=== PATIENT | male | born 1970 | race Caucasian/White ===

== ENCOUNTER 2017-04-27 23:16 | Emergency (ER) | payer SELFPAY ==
--- NOTE | 2017-04-27 23:28 | ER Document Report ---
ED General - General Chief Complaint: Overdose Stated Complaint: POSSIBLE OVERDOSE Time Seen by Provider: 04/27/17 23:21 Notes: Patient is a 46-year-old male presents with complaint of feeling very depressed and suicidal. He says that he has nothing left to live for. He will not go into detail as to why he feels this way. Tonight he took 31 mg Klonopin tablets as well as 3 Cogentin tablets. He also took 2 gabapentin's earlier today. He took the Klonopin and Cogentin around 10 PM. He denies any nausea vomiting. No abdominal pain. 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 He has no other complaints at this time. TRAVEL OUTSIDE OF THE [place] IN LAST 30 DAYS: No - Related Data Allergies/Adverse Reactions: acetaminophen [From Tylenol] Allergy (Verified 01/26/16 19:44) Past Medical History - Social History Smoking Status: Unknown if Ever Smoked Frequency of alcohol use: unknown Drug Abuse: Prescription drugs Family History: CAD - Patient states his mother had a coronary artery bypass graft in her 40s, his father of cancer in his late 60s Renal/ Medical History: Reports: Hx Kidney Stones Past Surgical History: Reports: Hx Appendectomy - Immunizations Hx Diphtheria, Pertussis, Tetanus Vaccination: Yes Review of Systems - Review of Systems Notes: My Normal Review Basic REVIEW OF SYSTEMS: CONSTITUTIONAL : Denies fever, chills, or sweats. Denies recent illness. EENT: Denies eye, ear, throat, or mouth pain or symptoms. Denies nasal or sinus congestion. CARDIOVASCULAR: Denies chest pain. RESPIRATORY: Denies cough, cold, or chest congestion. Denies shortness of breath, difficulty breathing, or wheezing. GASTROINTESTINAL: Denies abdominal pain. Denies nausea, vomiting, or diarrhea. Denies constipation. Last BM: MUSCULOSKELETAL: Denies neck or back pain or joint pain or swelling. SKIN: Denies rash or skin lesions. NEUROLOGICAL: Denies altered mental status or loss of consciousness. Denies headache. Denies weakness or paralysis or loss of use of either side. Denies problems with gait or speech. Denies sensory or motor loss. PSYCHIATRIC: Suicidal ideations. ALL OTHER SYSTEMS REVIEWED AND NEGATIVE. Physical Exam - Vital signs Vitals: Temp Pulse Resp BP Pulse Ox 97.6 F 74 10 L 120/83 97 04/27/17 23:45 04/27/17 23:45 04/27/17 23:45 04/27/17 23:45 04/27/17 23:45 - Notes Notes: General Appearance: Well nourished, slightly somnolent, cooperative, no acute distress, no obvious discomfort. Vitals: reviewed, See vital signs table. Head: no swelling or tenderness to the head Eyes: PERRL, EOMI, Conjuctiva clear Mouth: No decreasd moisture Lungs: No wheezing, No rales, No rhonci, No accessory muscle use, good air exchange bilaterally. Heart: Normal rate, Regular rythm, No murmur, no rub Abdomen: Normal BS, soft, No rigidity, No abdominal tenderness, No guarding, no rebound, no abdominal masses, no organomegaly Extremities: strength 5/5 in all extremities, good pulses in all extremities, no swelling or tenderness in the extremities, no edema. Skin: warm, dry, appropriate color, no rash Neuro: speech clear, oriented x 3, normal affect, responds appropriately to questions. Nerves II through XII are intact. Patient moves all extremities on his own without difficulty. Gait not tested. Course - Re-evaluation Re-evalutation: 04/28/17 03:01 Patient says he wants to leave. Informed him he cannot leave because he is on involuntary commitment paperwork. He is requesting I give him Vicodin for his back. He says he takes Vicodin at home. I asked him who prescribes his Vicodin. He hesitated and then said his primary care doctor. He says his doctors in [place]. His family stopped by early and told the nurse that he was kicked out of the methadone clinic while back. I did look him up in the prescription database. Patient has not received any narcotic prescriptions and last 3 months. I informed the patient that some possible that he was recent prescribed Vicodin based on the prescription database. Patient says that he is unsure why it is not showing up. I informed him that I would give him Motrin. Patient refuses Motrin. Patient says he wants pain for his chronic back pain and foot pain. Patient is awake and alert and no longer has any signs of somnolence. He is medically stable for psychiatric evaluation and placement. Dictation of this chart was performed using voice recognition software; therefore, there may be some unintended grammatical errors. - Vital Signs Vital signs: Temp Pulse Resp BP Pulse Ox 97.6 F 74 10 L 120/83 97 04/27/17 23:45 04/27/17 23:45 04/27/17 23:45 04/27/17 23:45 04/27/17 23:45 - Laboratory Result Diagrams: 04/27/17 23:25 04/27/17 23:25 Laboratory results interpreted by me: 04/27/17 23:25 Chloride 108 H AST 15 L Salicylates < 1.0 L Acetaminophen < 10 L - EKG Interpretation by Me Additional EKG results interpreted by me: 04/27/17 23:28 EKG is reviewed and interpreted by me. EKG shows normal sinus rhythm with rate of [address] segment elevation or depression. No ischemic T-wave inversions. UT interval, QRS duration, QTc intervals are within normal range. Discharge - Discharge Clinical Impression: Suicidal intent Overdose Qualifiers: Encounter type: initial encounter Injury intent: intentional self-harm Qualified Code(s): T50.902A - Poisoning by unspecified drugs, medicaments and biological substances, intentional self-harm, initial encounter Condition: Stable Disposition: PSYCH HOSP/UNIT
[2017-04-27 23:38] LABS: ABSOLUTE BASOPHILS # (AUTO) 0.1 10^3/uL (0.0-0.2); ABSOLUTE EOSINOPHILS # (AUTO) 0.2 10^3/uL (0.0-0.6); ABSOLUTE LYMPHOCYTES (AUTO) 2.6 10^3/uL (0.5-4.7); ABSOLUTE MONOCYTES (AUTO) 0.6 10^3/uL (0.1-1.4); ABSOLUTE NEUT (AUTO) 4.9 10^3/uL (1.7-8.2); BASOPHILS % (AUTO) 0.9 % (0-2); EOSINOPHILS % (AUTO) 2.7 % (0-6); HEMATOCRIT 46.4 % (37.9-51.0); HEMOGLOBIN 16.3 g/dL (13.5-17.0); HGB HCT DIFFERENCE 2.5; LYMPHOCYTES % (AUTO) 30.7 % (13-45); MEAN CORPUSCULAR HEMOGLOBIN 30.8 pg (27.0-33.4); MEAN CORPUSCULAR HGB CONC 35.1 g/dL (32.0-36.0); MEAN CORPUSCULAR VOLUME 88 fl (80-97); MONOCYTES % (AUTO) 7.3 % (3-13); RED CELL DISTRIBUTION WIDTH 13.3 % (11.5-14.0); SEGMENTED NEUTROPHILS % (AUTO) 58.4 % (42-78); WHITE BLOOD COUNT 8.4 10^3/uL (4.0-10.5)
[2017-04-27 23:53] LABS: ALANINE AMINOTRANSFERASE 31 U/L (21-72); ALKALINE PHOSPHATASE 80 U/L (38-126); ANION GAP 10 (5-19); ASPARTATE AMINO TRANSFERASE 15 U/L (17-59); BILIRUBIN,DIRECT 0.4 mg/dL (0.0-0.4); BILIRUBIN,TOTAL 0.4 mg/dL (0.2-1.3); BLOOD UREA NITROGEN 8 mg/dL (7-20); CALCIUM 9.5 mg/dL (8.4-10.2); CARBON DIOXIDE 26 mmol/L (22-30); CHLORIDE 108 mmol/L (98-107); CREATININE RESULT 0.75 mg/dL (0.52-1.25); GLUCOSE 96 mg/dL (75-110); POTASSIUM 4.2 mmol/L (3.6-5.0); SODIUM 143.7 mmol/L (137-145); TOTAL PROTEIN 6.5 g/dL (6.3-8.2)
[2017-04-27 23:55] LABS: ALCOHOL < 10 mg/dL (NONE DETECTED)
[2017-04-28 00:53] LABS: APPEARANCE,URINE CLEAR; BILIRUBIN,URINE NEGATIVE (NEGATIVE); GLUCOSE, URINE NEGATIVE (NEGATIVE); KETONES,URINE NEGATIVE (NEGATIVE); LEUKOCYTE ESTERASE,URINE NEGATIVE (NEGATIVE); NITRITE,URINE NEGATIVE (NEGATIVE); PROTEIN,URINE NEGATIVE (NEGATIVE); URINE SPECIFIC GRAVITY 1.003; UROBILINOGEN,URINE NEGATIVE mg/dL (<2.0)
[2017-04-28 01:39] LABS: URINE BARBITURATES SCREEN NEGATIVE; URINE METHADONE SCREEN NEGATIVE; URINE OPIATES LOW UNCONFIRMED POSITIVE; URINE PHENCYCLIDINE SCREEN NEGATIVE
--- NOTE | 2017-04-28 08:10 | EKG REPORT ---
SEVERITY:- NORMAL ECG - SINUS RHYTHM : Confirmed by: Ranulfo Hager MD 28-Apr-2017 08:09:32
[2017-04-28] MEDS ORDERED: OXYCODONE HCL IR 5 MG TABLET PO ONE (10:29)
--- NOTE | 2017-04-28 10:32 | ER Document Report ---
Doctor's Note Notes: 04/28/17 10:30 This is a 46-year-old man with a history of depression who presents to the emergency room depressed in the setting of an intentional overdose with Klonopin. Patient was observed overnight. His labs and vital signs have been stable. He does have a history of chronic back pain. I have reviewed the previous notes where there is question as to whether he is really on these medicines. Given that he has been in the ER for several hours and on the stretcher is and given his complaints of sciatica, we will treat him symptomatically. We are currently awaiting psychiatric disposition 04/28/17 10:31 04/28/17 13:56 The patient has been evaluated and cleared by psychiatry. The plan will be for him to follow-up immediately after discharge at [facility].
--- NOTE | 2017-04-28 13:45 | ER Document Report ---
ED Psych Disorder / Suicide - General Chief Complaint: Overdose Stated Complaint: POSSIBLE OVERDOSE Time Seen by Provider: 04/27/17 23:21 TRAVEL OUTSIDE OF THE [place] IN LAST 30 DAYS: No - HPI Notes: Patient is a 46-year-old male presents with complaint of feeling very depressed and suicidal. He says that he has nothing left to live for. He will not go into detail as to why he feels this way. Tonight he took 31 mg of Klonopin tablets as well as 3 Cogentin tablets. He also took 2 gabapentin's earlier today. He took the Klonopin and Cogentin around 10 PM. He denies any nausea vomiting. No abdominal pain. 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 He has no other complaints at this time. First attempt to evaluate patient was unsuccessful (patient is still AMS); reevaluation will occur. Patient disclosed he needs to go home now because he is very irritated. Patient states that he was upset and just took "a handful of pills of my friends so I can get some sleep." Patient stated that apparently after he fell asleep all of his friends became concerned. Patient adamantly denies he attempted suicide. Patient states that he needs to go home to take care of his dogs so they do not "starve to ." Patient continued to state that there is not an issue and he would like to leave now. Patient is alert and orientated to person place time and circumstance. Mood is slightly irritable with congruent affect. She adamantly denies suicidal and homicidal ideation. Patient denies auditory visual hallucinations. Delusions are absent and behaviors congruent with intact reality based presentation i.e. organized linear rational thinking. Patient eye contact was well-maintained. Conversational speech was within normal rate tone and prosody. Intellectual abilities appear to be within the average range. Attention and concentration are good. Insight, judgment, impulse control are fair. V 62.9 (6 5.9) unspecified problem related to unspecified psychosocial circumstance Impression\\plan: Patient is recommended for rescind of IVC and is considered psychiatrically clear for discharge. Patient does not meet IVC criteria per [place] GS 122C. Patient adamantly denies suicidal and homicidal ideation. Patient states he was just trying to get some sleep however does admit that he took medication that did not belong to him. Delusions are absent behaviors congruent with intact reality based presentation i.e. organized, linear, rational thinking. Patient is discussing caring for his animals and other things that he needs to do showing planning for future. Patient is demonstrating some cluster B personality traits. Patient is recommended to receive a substance abuse assessment and possible treatment. Dr. Whiteside was consulted and the care management of this patient; attending physician is agreement with recommendations and disposition. - Related Data Allergies/Adverse Reactions: acetaminophen [From Tylenol] Allergy (Verified 01/26/16 19:44) Home Medications: Current Home Medications No Home Medications 04/28/17 [History] Past Medical History - Social History Smoking Status: Unknown if Ever Smoked Chew tobacco use (# tins/day): No Frequency of alcohol use: unknown Drug Abuse: Prescription drugs Family History: CAD - Patient states his mother had a coronary artery bypass graft in her 40s, his father of cancer in his late 60s Renal/ Medical History: Reports: Hx Kidney Stones Past Surgical History: Reports: Hx Appendectomy - Immunizations Hx Diphtheria, Pertussis, Tetanus Vaccination: Yes Physical Exam - Vital signs Vitals: Resp Pulse Ox 8 L 98 04/27/17 23:21 04/27/17 23:21 Course - Vital Signs Vital signs: Temp Pulse Resp BP Pulse Ox 97.8 F 80 14 121/79 95 04/28/17 09:45 04/28/17 09:45 04/28/17 09:45 04/28/17 09:45 04/28/17 09:45 - Laboratory Result Diagrams: 04/27/17 23:25 04/27/17 23:25 Laboratory results interpreted by me: 04/27/17 23:25 Chloride 108 H AST 15 L Salicylates < 1.0 L Acetaminophen < 10 L Discharge - Discharge Clinical Impression: Overdose Qualifiers: Encounter type: initial encounter Injury intent: intentional self-harm Qualified Code(s): T50.902A - Poisoning by unspecified drugs, medicaments and biological substances, intentional self-harm, initial encounter Clinical Impression: (Ruled Out): Suicidal intent Condition: Stable Disposition: HOME, SELF-CARE Additional Instructions: He will recommended to receive outpatient substance abuse assessment at [facility]. Please contact them within 3-5 days for an appointment. It is also recommended you take medications as prescribed and only medications that are prescribed to you. AT ANY TIME, IF YOUR SYMPTOMS CHANGE SIGNIFICANTLY OR WORSEN OR YOU DEVELOP NEW SYMPTOMS, RETURN TO THE EMERGENCY DEPARTMENT IMMEDIATELY FOR RE-EVALUATION. OUR GOAL IS TO PROVIDE EXCELLENT MEDICAL CARE! WE HOPE THAT WE HAVE MET YOUR EXPECTATIONS DURING YOUR EMERGENCY DEPARTMENT VISIT AND THAT YOU FEEL YOU HAVE RECEIVED EXCELLENT CARE! Referrals: [facility] [Outside] - Follow up in 3-5 days
[2017-04-28 14:21] VITALS: BP 125/64
== END 2017-04-28 14:21 | disposition home or self-care (01) ==
LOC: ER 23:16
DX: T42.4X2A Poisoning by benzodiazepines, intentional self-harm, initial encounter (principal); F32.9 Major depressive disorder, single episode, unspecified
CPT/HCPCS: 36415; 80053; 80307; 81001; 85025; 93005; 93010; 99285

== ENCOUNTER 2017-10-15 14:26 | Emergency (ER) | payer SELFPAY ==
[2017-10-15] MEDS ORDERED: OXYCODONE HCL IR 5 MG TABLET PO ONE (14:41)
[2017-10-15] MEDS ORDERED: LIDOCAINE 1% INJ-PF (10 MG/ML) 30 ML SDV INJ ONE (14:41)
[2017-10-15] MEDS ORDERED: DIPH/PERTUSS(ACELL)/TETANUS VAC/PF 0.5 ML SYR (>=10YO) IM ONE (14:41)
--- NOTE | 2017-10-15 14:47 | ER Document Report ---
ED Animal Bite - General Chief Complaint: Dog Bite Stated Complaint: DOG BITE Time Seen by Provider: 10/15/17 14:34 Mode of Arrival: Ambulatory Information source: Patient TRAVEL OUTSIDE OF THE [place] IN LAST 30 DAYS: No - HPI Location of injury: Other - rt forearm Severity of injury: Bitten Onset: Just prior to arrival Quality of pain: Throbbing Pain Level: 4 Severity: Moderate Context of attack: Animals fighting Summary of what happened: his two dogs started fighting and he tried to break it up and got bit Type of animal: Dog Appearance of animal: Appeared well Breed and color: pit mix Animal's immunizations: UTD Notes: Patient is a 47-year-old male with no significant past medical history presents to the ED with a dog bite to the right forearm as noted above. Patient states that he can still move his hand, but does have pain in his forearm in doing so. Patient states that his dog is otherwise been healthy with immunizations up-to -date. Denies any other recent illness. No other concerns or complaints at this time. Unknown last tetanus. Denies any headache, fever, head injury, neck pain, URI, sore throat, chest pain, palpitations, syncope, cough, shortness of breath, wheeze, dyspnea, abdominal pain, nausea/vomiting/diarrhea, urinary retention, dysuria, hematuria, numbness/tingling, muscle paralysis/ weakness, or rash. - Related Data Allergies/Adverse Reactions: acetaminophen [From Tylenol] Allergy (Verified 10/15/17 14:31) Past Medical History - Social History Smoking Status: Current Every Day Smoker Family History: CAD - Patient states his mother had a coronary artery bypass graft in her 40s, his father of cancer in his late 60s Renal/ Medical History: Reports: Hx Kidney Stones Past Surgical History: Reports: Hx Appendectomy - Immunizations Hx Diphtheria, Pertussis, Tetanus Vaccination: Yes Review of Systems - Review of Systems -: Yes All other systems reviewed and negative Physical Exam - Vital signs Vitals: Temp Pulse Resp BP Pulse Ox 98.5 F 70 16 136/96 H 97 10/15/17 14:31 10/15/17 14:31 10/15/17 14:31 10/15/17 14:31 10/15/17 14:31 - Notes Notes: PHYSICAL EXAMINATION: GENERAL: Well-appearing, well-nourished and in no acute distress. A&Ox4. LUNGS: Breath sounds clear to auscultation bilaterally and equal. No wheezes rales or rhonchi. HEART: Regular rate and rhythm without murmurs, rubs, gallops. Musculoskeletal: Rt arm: FROM to passive/active. Strength 4+/5 due to pain. N/ v intact distal. Extremities: No cyanosis, clubbing, or edema b/l. Peripheral pulses 2+. Capillary refill less than 3 seconds. NEUROLOGICAL: Cranial nerves grossly intact. Normal speech, normal gait. Normal sensory, motor exams PSYCH: Normal mood, normal affect. SKIN: There is a [id number] laceration/puncture to the rt posterior forearm, [id number] lac/puncture to the rt posteromedial forearm, and a [id number] lac/ puncture to the rt anterior forearm. Course - Re-evaluation Re-evalutation: 10/15/17 15:45 Patient is an afebrile, well-hydrated, 47-year-old male who presents to the ED with a dog bite/laceration to his right forearm 3. Vitals are acceptable. PE is otherwise unremarkable for any neurovascular compromise, obvious tendon/ ligament rupture, obvious fracture/dislocation, retained foreign body, compartment syndrome. XR unremarkable for any acute pathology. Wound was thoroughly irrigated and cleansed. Wound edges were loosely approximated utilizing 1 simple interrupted horizontal suture for each. 3 total sutures. Wound dressing was placed and wound instructions reviewed. I will be sending him home with a prescription for Augmentin. Tdap was updated today. Conservative measures otherwise for symptoms. Recheck with your PCM on Tuesday. Return to the ED with any worsening/concerning symptoms otherwise as reviewed discharge. Patient is in agreement. - Vital Signs Vital signs: Temp Pulse Resp BP Pulse Ox 98.5 F 70 16 136/96 H 97 10/15/17 14:31 10/15/17 14:31 10/15/17 14:31 10/15/17 14:31 10/15/17 14:31 Procedures - Laceration/Wound Repair Right Arm Time completed: 15:40 Wound length (cm): 2 Wound's Depth, Shape: Superficial, Irregular Laceration pre-procedure: Sterile PPE donned, Sterile drapes applied, Other - chlorhexadine Anesthetic type: 1% Lidocaine Volume Anesthetic (mLs): 6 Wound explored: Clean, No foreign body removed Irrigated w/ Saline (mLs): 60 Wound Debrided: Minimal Wound Repaired With: Sutures Suture Size/Type: 4:0, Nylon Number of Sutures: 1 - loose closure, horizontal mattress Post-procedure wound care: Sterile dressing applied Post-procedure NV exam normal: Yes Complications: No Notes: 10/15/17 15:40 The same procedure was utilized for the other two laceration repairs to the forearms. The system will not allow for "same name" procedure to be added. Discharge - Discharge Clinical Impression: Dog bite of arm Qualifiers: Encounter type: initial encounter Laterality: right Qualified Code(s): S41.151A - Open bite of right upper arm, initial encounter Condition: Stable Disposition: HOME, SELF-CARE Instructions: Antibiotic Ointment Protection ([facility]), Laceration Care ([facility]), Soap Cleansing ([facility]), Tetanus Immunization Given ([facility]) Additional Instructions: Do not shower or bathe for 24 hours. After 24 hours you may shower but no submersion of the wound under water. Keep the original dressing on the wound for 24 hours unless the drainage soaks through. Change the dressing daily thereafter and keep the knots of the suture material clean from any dried discharge. You may leave the wound open to the air once there is no more discharge. Return to the ED and/or your PCM in 2-3 days for a recheck. Monitor for any signs of worsening pain or redness, purulent drainage, streaks, and/or fever. Return to the ED if noticing any of the above symptoms or as needed. Take medications as directed. Your sutures will need to be removed in 10 days. Keep the skin clean Wash with soap and water Wet-dry dressings Ibuprofen if needed Triple antibiotic ointment daily Take medication as directed Monitor for any worsening symptoms Recheck with your PCM in 3-5 days Orthopedics if needed Return to the ED with any worsening symptoms and/or development of fever, headache, chest pain, palpitations, syncope, shortness of breath, trouble breathing, abdominal pain, n/v/d, abscess, purulent discharge, red streaks, worsening swelling, or other worsening symptoms that are concerning to you. Prescriptions: Amox Tr/Potassium Clavulanate [Augmentin 875-125 Tablet] 1 tab PO BID 10 Days # 20 tablet Morphine Sulfate [Morphine Ir 15 Mg Tablet] 15 mg PO TID #15 tablet Forms: Elevated Blood Pressure, Smoking Cessation Education Referrals: [facility] [Provider Group] - Follow up as needed
--- NOTE | 2017-10-15 15:31 | RADIOLOGY REPORT (SQ) ---
EXAM DESCRIPTION: FOREARM RIGHT COMPLETED DATE/TIME: 10/15/2017 3:17 pm REASON FOR STUDY: dog bite right forearm COMPARISON: None. NUMBER OF VIEWS: Two views. TECHNIQUE: Two radiographic images acquired of the right forearm, including elbow and wrist in at le ast one projection. LIMITATIONS: None. FINDINGS: MINERALIZATION: Normal. BONES: No acute fracture. No worrisome bone lesions. SOFT TISSUES: Soft tissue irregularity of the antro lateral mid forearm without retained radiopaque f oreign body. OTHER: No other significant finding. IMPRESSION: Soft tissue injury without retained radiopaque foreign body or underlying osseous injury . TECHNICAL DOCUMENTATION: JOB ID: [id number] [employer]- All Rights Reserved Reading location - IP/workstation name: [email or web address]
[2017-10-15 16:08] VITALS: BP 139/84
== END 2017-10-15 16:08 | disposition home or self-care (01) ==
LOC: ER 14:26
DX: S51.851A Open bite of right forearm, initial encounter (principal); W54.0XXA Bitten by dog, initial encounter; Y93.K9 Activity, other involving animal care; F17.200 Nicotine dependence, unspecified, uncomplicated; Z88.6 Allergy status to analgesic agent; Z23 Encounter for immunization
CPT/HCPCS: 99284; 90471; 73090; 90715; 12004; J3490

== ENCOUNTER 2017-11-11 13:25 | Emergency (ER) | payer SELFPAY ==
[2017-11-11] MEDS ORDERED: AMOXICILLIN TR/POT CLAVULANATE 500-125 MG TAB PO ONE (14:20)
[2017-11-11] MEDS ORDERED: LIDOCAINE 1% INJ-PF (10 MG/ML) 30 ML SDV INJ ONE (14:20)
[2017-11-11] MEDS ORDERED: OXYCODONE HCL IR 5 MG TABLET PO ONE (14:20)
[2017-11-11] MEDS ORDERED: AMOXICILLIN TRIHYD 250 MG CAPSULE PO ONE (14:21)
--- NOTE | 2017-11-11 14:28 | ER Document Report ---
HPI - HPI Patient complains to provider of: dog bite Onset: Just prior to arrival Onset/Duration: Sudden Quality of pain: Sharp Pain Level: 4 Context: Patient states that he attempted to rescue a cat from a dog and the dog bit his left forearm just prior to arrival. Patient was here 1 month ago for dog bite his tetanus was updated at that visit. Patient with puncture wound and laceration to left forearm. Associated Symptoms: Other - dog bite Exacerbated by: Movement Relieved by: Denies Similar symptoms previously: Yes Recently seen / treated by doctor: Yes - ROS ROS below otherwise negative: Yes Systems Reviewed and Negative: Yes All other systems reviewed and negative - MUSCULOSKELETAL Musculoskeletal: REPORTS: Extremity pain - left arm - DERM Skin Problems: Laceration Past Medical History - General Information source: Patient - Social History Smoking Status: Current Every Day Smoker Chew tobacco use (# tins/day): No Frequency of alcohol use: None Drug Abuse: None Occupation: apprentice painter hand Family History: CAD - Patient states his mother had a coronary artery bypass graft in her 40s, his father of cancer in his late 60s Patient has suicidal ideation: No Patient has homicidal ideation: No Renal/ Medical History: Reports: Hx Kidney Stones. Denies: Hx Peritoneal Dialysis Past Surgical History: Reports: Hx Appendectomy - Immunizations Hx Diphtheria, Pertussis, Tetanus Vaccination: Yes Vertical Provider Document - CONSTITUTIONAL Agree With Documented VS: Yes Exam Limitations: No Limitations General Appearance: WD/WN, No Apparent Distress - INFECTION CONTROL TRAVEL OUTSIDE OF THE [place] IN LAST 30 DAYS: No - HEENT HEENT: Atraumatic, Normocephalic - NECK Neck: Normal Inspection - RESPIRATORY Respiratory: No Respiratory Distress - CARDIOVASCULAR Pulses: Normal: Radial - BACK Back: Normal Inspection - MUSCULOSKELETAL/EXTREMETIES Musculoskeletal/Extremeties: MAEW, Tender - left forearm - NEURO Level of Consciousness: Awake, Alert, Appropriate Motor/Sensory: No Motor Deficit - DERM Integumentary: Warm, Dry, Laceration - left forearm lac to volar aspect, pw to dorsal aspect of left forearm Course - Re-evaluation Re-evalutation: 11/11/17 15:20 Patient's wound irrigated with Betadine and saline solution, no foreign body noted, wound edges loosely approximated to allow healing by secondary intention. Pt given good return precautions as well as instructions for care of wound. Patient encouraged to return in 48 hours for a wound recheck. Patient advised that he will need to return for rabies vaccination series if animal control is unable to locate the animal in the next 5 days. Patient verbalized understanding and agrees with plan of care. - Vital Signs Vital signs: Temp Pulse Resp BP Pulse Ox 98.4 F 82 16 153/101 H 95 11/11/17 13:29 11/11/17 13:29 11/11/17 13:29 11/11/17 13:29 11/11/17 13:29 - Diagnostic Test Radiology reviewed: Pending, Image reviewed Procedures - Laceration/Wound Repair Left Arm Wound length (cm): 3 Wound's Depth, Shape: Irregular Laceration pre-procedure: Betadine prep applied Anesthetic type: 1% Lidocaine Volume Anesthetic (mLs): 3 Wound explored: Clean, No foreign body removed Irrigated w/ Saline (mLs): 1,000 Wound Repaired With: Sutures Suture Size/Type: 4:0, Nylon Number of Sutures: 2 Post-procedure wound care: Sterile dressing applied Post-procedure NV exam normal: Yes Complications: No Notes: 11/11/17 15:20 wound loosely approximated to allow healing by secondary intention Adult Front & Back picture: 1 - 3 cm lac Left Dorsal Arm Wound length (cm): 1.5 Wound's Depth, Shape: Irregular Laceration pre-procedure: Betadine prep applied Anesthetic type: 1% Lidocaine Wound explored: Clean Wound Debrided: Minimal Wound Repaired With: Sutures Suture Size/Type: 4:0, Nylon Number of Sutures: 1 Post-procedure wound care: Sterile dressing applied Post-procedure NV exam normal: Yes Complications: No Notes: 11/11/17 15:20 wound loosely approximated Discharge - Discharge Clinical Impression: Dog bite Qualifiers: Encounter type: initial encounter Qualified Code(s): W54.0XXA - Bitten by dog, initial encounter Arm laceration Qualifiers: Encounter type: initial encounter Laterality: left Qualified Code(s): S41.112A - Laceration without foreign body of left upper arm, initial encounter Condition: Stable Disposition: HOME, SELF-CARE Instructions: Animal Bites ([facility]), Antibiotic Ointment Protection ([facility]), Laceration Care ([facility]), Prophylactic Antibiotic ([facility]), Soap Cleansing ([facility]) Additional Instructions: Return immediately for any new or worsening symptoms Followup with your primary care provider, call tomorrow to make a followup appointment Return in 2 days for a wound recheck If animal control is unable to locate the dog within the next 5 days return for rabies vaccination series Prescriptions: Amox Tr/Potassium Clavulanate [Augmentin 875-125 Tablet] 1 tab PO BID 7 Days tablet Oxycodone HCl [Oxy-Ir 5 mg Tablet] 5 mg PO Q8 PRN #12 tab PRN Reason: Forms: Return to Work Referrals: [facility] [NO LOCAL MD] - Follow up as needed
--- NOTE | 2017-11-11 15:16 | RADIOLOGY REPORT (SQ) ---
EXAM DESCRIPTION: FOREARM LEFT COMPLETED DATE/TIME: 11/11/2017 3:01 pm REASON FOR STUDY: dog bite COMPARISON: None. NUMBER OF VIEWS: Two views. TECHNIQUE: Two radiographic images acquired of the left forearm, including elbow and wrist in at [address] one projection. LIMITATIONS: None. FINDINGS: MINERALIZATION: Normal. BONES: No acute fracture. No worrisome bone lesions. SOFT TISSUES: No obvious swelling or foreign body. Laceration. OTHER: No other significant finding. IMPRESSION: No acute fracture. No foreign body. TECHNICAL DOCUMENTATION: JOB ID: [id number] [employer]- All Rights Reserved Reading location - IP/workstation name: [email or web address]
[2017-11-11 15:49] VITALS: BP 131/87
== END 2017-11-11 15:49 | disposition home or self-care (01) ==
LOC: ER 13:25
PROC: 0HQEXZZ Repair Left Lower Arm Skin, External Approach (ICD-10-PCS; principal; 2017-11-11)
DX: S51.852A Open bite of left forearm, initial encounter (principal); W54.0XXA Bitten by dog, initial encounter; F17.200 Nicotine dependence, unspecified, uncomplicated; Z87.442 Personal history of urinary calculi
CPT/HCPCS: 99283; 73090; 12002; J3490 ×2

== ENCOUNTER 2019-04-12 09:40 | Emergency (ER) | payer SELFPAY ==
--- NOTE | 2019-04-12 11:28 | ER Document Report ---
ED Hand/Wrist Injury - General Chief Complaint: Puncture Wound Stated Complaint: RIGHT HAND INJURY Time Seen by Provider: 04/12/19 11:17 Primary Care Provider: JEFFERSON HUBER MD [ACTIVE PROVISIONAL STAFF] - Follow up as needed Notes: 48 year old right handed male injured right hand this am. Sharp pain. Puncture wound to right hand. Laceration to webbing right thumb. No other injuries. Rt handed. TRAVEL OUTSIDE OF THE [place] IN LAST 30 DAYS: No - HPI Patient complains to provider of: hand injury Onset: This morning Where: Home Timing: Constant Quality of pain: Achy, Burning Severity: Moderate - Related Data Allergies/Adverse Reactions: acetaminophen [From Tylenol] Allergy (Verified 04/12/19 10:31) Past Medical History - Social History Smoking Status: Current Every Day Smoker Chew tobacco use (# tins/day): No Frequency of alcohol use: None Drug Abuse: Marijuana Family History: CAD - Patient states his mother had a coronary artery bypass graft in her 40s, his father of cancer in his late 60s Patient has suicidal ideation: No Patient has homicidal ideation: No Renal/ Medical History: Reports: Hx Kidney Stones. Denies: Hx Peritoneal Dialysis Past Surgical History: Reports: Hx Appendectomy - Immunizations Hx Diphtheria, Pertussis, Tetanus Vaccination: Yes Review of Systems - Review of Systems Constitutional: No symptoms reported EENT: No symptoms reported Cardiovascular: No symptoms reported Respiratory: No symptoms reported Gastrointestinal: No symptoms reported Genitourinary: No symptoms reported Male Genitourinary: No symptoms reported Musculoskeletal: See HPI, Other - right hand pain. Skin: No symptoms reported Hematologic/Lymphatic: No symptoms reported Neurological/Psychological: No symptoms reported Physical Exam - Vital signs Vitals: Temp Pulse Resp BP Pulse Ox 98.0 F 63 16 147/101 H 98 04/12/19 09:44 04/12/19 09:44 04/12/19 09:44 04/12/19 09:44 04/12/19 09:44 Interpretation: Normal - General General appearance: Appears well, Alert - HEENT Head: Normocephalic, Atraumatic Eyes: Normal Pupils: PERRL - Respiratory Respiratory status: No respiratory distress Chest status: Nontender Breath sounds: Normal Chest palpation: Normal - Cardiovascular Rhythm: Regular Heart sounds: Normal auscultation Murmur: No - Abdominal Inspection: Normal Distension: No distension Bowel sounds: Normal Tenderness: Nontender Organomegaly: No organomegaly - Back Back: Normal, Nontender - Extremities General upper extremity: Normal inspection, Nontender, Normal color, Normal ROM, Normal temperature General lower extremity: Normal inspection, Nontender, Normal color, Normal ROM, Normal temperature, Normal weight bearing. No: Iliana's sign Hand: Tender, Other - right hand lac 1.5 cm no bleeding - Neurological Neuro grossly intact: Yes Cognition: Normal Orientation: AAOx4 [place] Coma Scale Eye Opening: Spontaneous [place] Coma Scale Verbal: Oriented [place] Coma Scale Motor: Obeys Commands [place] Coma Scale Total: 15 Speech: Normal Motor strength normal: LUE, RUE, LLE, RLE Sensory: Normal - Psychological Associated symptoms: Normal affect, Normal mood - Skin Skin Temperature: Warm Skin Moisture: Dry Skin Color: Normal Course - Vital Signs Vital signs: Temp Pulse Resp BP Pulse Ox 98.0 F 63 16 147/101 H 98 04/12/19 09:44 04/12/19 09:44 04/12/19 09:44 04/12/19 09:44 04/12/19 09:44 Procedures - Laceration/Wound Repair Right Hand Thumb Time completed: 12:30 Wound length (cm): 1.5 Wound's Depth, Shape: Superficial, Linear, Other - puncture Anesthetic type: 1% Lidocaine Volume Anesthetic (mLs): 6 Wound explored: Contaminated Irrigated w/ Saline (mLs): 20 Wound Debrided: Minimal Wound Repaired With: Sutures Suture Size/Type: 4:0, Ethilon Number of Sutures: 3 Layer Closure?: No Notes: 04/12/19 12:40 Loosely approximated with 3 ethilon sutures. He tolerated well without apparent complications. Discharge - Discharge Clinical Impression: Right hand pain Condition: Good Disposition: HOME, SELF-CARE Instructions: Hand Laceration ([facility]), Puncture Wound ([facility]) Additional Instructions: Rest, keep wound clean and dry and elevated. See your doctor in follow up in 2 days 04/14 either here or with your doctor. Please return here for any problems or concerns. Prescriptions: Hydrocodone Bit/Acetaminophen [Hydrocodon-Acetaminophen 5-325] 1 each PO TID #12 tablet Cephalexin Monohydrate [Keflex 500 mg Capsule] 500 mg PO TID #30 capsule Referrals: JEFFERSON HUBER MD [ACTIVE PROVISIONAL STAFF] - Follow up as needed
[2019-04-12] MEDS ORDERED: LIDOCAINE 1% INJ-PF (10 MG/ML) 30 ML SDV ONE (11:55)
--- NOTE | 2019-04-12 12:00 | RADIOLOGY REPORT (SQ) ---
EXAM DESCRIPTION: HAND RIGHT 3 VIEWS COMPLETED DATE/TIME: 04/12/2019 11:40 am REASON FOR STUDY: bed 14 puncture to right hand with screwdriver COMPARISON: None. EXAM PARAMETERS: NUMBER OF VIEWS: Three views. TECHNIQUE: AP, lateral and oblique radiographic images acquired of the right hand. LIMITATIONS: None. FINDINGS: MINERALIZATION: Normal. BONES: No acute fracture or dislocation. No worrisome bone lesions. JOINTS: No effusions. SOFT TISSUES: No soft tissue swelling. No foreign body. OTHER: No other significant finding. IMPRESSION: Laceration along the web between the first and second metacarpals, without radiopaque fo reign body. TECHNICAL DOCUMENTATION: JOB ID: [id number] [employer]- All Rights Reserved Reading location - IP/workstation name: [email or web address]
[2019-04-12] MEDS ORDERED: LIDOCAINE 1% INJ (10 MG/ML) 10 ML MDV INJ ONE (12:23)
[2019-04-12] MEDS ORDERED: CEFAZOLIN INJ 1 GM VIAL IM STA (12:24)
[2019-04-12 13:54] VITALS: BP 135/62
== END 2019-04-12 13:00 | disposition home or self-care (01) ==
LOC: ER 09:40
DX: S61.011A Laceration without foreign body of right thumb without damage to nail, initial encounter (principal); M79.641 Pain in right hand; W27.0XXA Contact with workbench tool, initial encounter; Y93.89 Activity, other specified; Y92.009 Unspecified place in unspecified non-institutional (private) residence as the place of occurrence of the external cause; F17.200 Nicotine dependence, unspecified, uncomplicated; F12.10 Cannabis abuse, uncomplicated; Z88.8 Allergy status to other drugs, medicaments and biological substances
CPT/HCPCS: 99283; 96365; 73130; 12001; J0690